=== PATIENT | male | born 1950 | race Caucasian/White ===

== ENCOUNTER → 2017-12-22 | Outpatient (CLI) | payer OTHER | LOC: BMCIMAGING 13:34 | PROVIDERS: ATTEND Family Medicine | DX: Z13.6 Encounter for screening for cardiovascular disorders (principal); I77.811 Abdominal aortic ectasia; I25.10 Atherosclerotic heart disease of native coronary artery without angina pectoris; E78.5 Hyperlipidemia, unspecified; Z95.2 Presence of prosthetic heart valve ==

== ENCOUNTER → 2018-02-24 | Outpatient (CLI) | payer OTHER ==
--- NOTE | 2018-03-01 11:46 | CPEEG ---
DATE OF STUDY: 02/24/2018 INTERPRETATION: Normal EEG during wakefulness and partial sleep. There were no potentially epilepto genic abnormalities present during the study. REPORT: This EEG contains 10 Hz alpha activity to the posterior head regions. There was no abnormal activation at rest, during photic stimulation or hyperventilation. The patient became drowsy and fe ll into light sleep briefly during the recording. There was no abnormal activation during drowsiness , brief sleep or during times of arousal. /[id number]/MODL
== END ==
LOC: FCPNEURO 09:38
PROVIDERS: ATTEND Psychiatry & Neurology Neurology
DX: G40.909 Epilepsy, unspecified, not intractable, without status epilepticus (principal)

== ENCOUNTER → 2018-03-04 | Outpatient (CLI) | payer OTHER ==
[~2018-03-04] MED LIST: GADOBUTROL 10 ML VIAL IVP ONE
== END ==
LOC: FIMAGING 09:11
PROVIDERS: ATTEND Psychiatry & Neurology Neurology
DX: G40.909 Epilepsy, unspecified, not intractable, without status epilepticus (principal)
CPT/HCPCS: 70553; A9585; 82565-PO

== ENCOUNTER → 2018-03-29 | Outpatient (CLI) | payer OTHER | LOC: BHFA 13:15 | PROVIDERS: ATTEND Internal Medicine Cardiovascular Disease | DX: R55 Syncope and collapse (principal); I25.10 Atherosclerotic heart disease of native coronary artery without angina pectoris; Z95.2 Presence of prosthetic heart valve | CPT/HCPCS: 78452; 93017; 93306; A9500 ==

== ENCOUNTER 2018-08-11 20:25 | Emergency (ER) | payer OTHER ==
--- NOTE | 2018-08-11 21:34 | EDPHY ---
H & P Time Seen by Provider: 08/11/18 21:33 HPI/ROS: Chief complaint. Seizure HPI. Patient is 68-year-old male with history of previous seizure and on Keppra presents with seizure that occurred tonight. His partner says he was sitting on the couch after dinner. He noted that he had some preceding aura and then his eyes rolled back in and had a short generalized tonic-clonic type seizure. He has had 1 previous seizure in January 2018. Apparently EEG and MRI were normal. He then also saw [facility] that as possible etiology but had normal workup. He says he is not sick. He complains compliance with medication. No recent head injury. He is not on blood thinners. He is now back to normal. He did bite his in her left lower lip ROS 10 systems were reviewed and negative with the exception of the elements mentioned in the history of present illness Past Medical/Surgical History: Seizure disorder, dyslipidemia, BPH, herpes Social History: , nonsmoker, no alcohol Smoking Status: Former smoker Physical Exam: General Appearance: Alert well-developed male mild distress vital signs are stable Eyes: Pupils equal and round no pallor or injection. ENT, no hemotympanum or Hollis sign. No oral pharyngeal or dental trauma. He did bite the inner left lower lip. Respiratory: There are no retractions, lungs are clear to auscultation. Cardiovascular: Regular rate and rhythm. Gastrointestinal: Abdomen is soft and nontender, no masses, bowel sounds normal. Neurological: Awake and alert, sensory and motor exams grossly normal. Skin: Warm and dry, no rashes. Musculoskeletal: Neck is supple nontender. Extremities symmetrical, full range of motion. Psychiatric: Patient is oriented X 3, there is no agitation. Constitutional: Initial Vital Signs Temperature (C) 36.4 C 08/11/18 20:37 Heart Rate 73 08/11/18 20:37 Respiratory Rate 16 08/11/18 20:37 Blood Pressure 119/93 H 08/11/18 20:37 O2 Sat (%) 96 08/11/18 20:37 O2 Delivery Mode Room Air Allergies/Adverse Reactions: Penicillins Allergy (Intermediate, Verified 08/11/18 20:41) STOMACH ACHE Home Medications: Medication Instructions Recorded Aspirin [Aspirin 81mg (OTC)] 81 mg PO DAILY 11/18/11 Vitamin B Complex [Vitamin B 1 each PO DAILY 11/18/11 Complex (OTC)] Tamsulosin HCl [Flomax 0.4 MG (*)] 0.4 mg PO DAILY 02/04/18 levETIRAcetam [Keppra 500 mg (*)] 500 mg PO BID 02/04/18 Atorvastatin Calcium 08/11/18 Medical Decision Making Procedures: IV normal saline. Seizure precautions. Keppra orally Old records and MRI are reviewed ED Course/Re-evaluation: Serial evaluations patient is stable. Conversational. No further seizure activity. He is given a 2nd at 500 mg Keppra in the emergency department to make sure his level is therapeutic. He had had his last dose this morning and had not received his evening dose. I was concerned that the level may be low so he is given a total of a 1000 mg orally in the ED Patient and I discussed laboratory evaluation, treatment plan including criteria for return importance of follow-up and further evaluation. He expresses understanding and agreement Differential Diagnosis: Seizure in a man with previous seizure and normal workup including MRI and EEG. Last seizure was in January. I considered electrolyte abnormalities and hypoglycemia - Data Points Laboratory Results: Laboratory Results 08/11/18 22:50 08/11/18 23:15 08/11/18 08/11/18 23:15 22:50 WBC 9.62 10^3/uL H 10^3/uL (3.80-9.50) RBC 4.47 10^6/uL 10^6/uL (4.40-6.38) Hgb 13.7 g/dL g/dL (13.7-17.5) Hct 39.8 % L % (40.0-51.0) MCV 89.0 fL fL (81.5-99.8) MCH 30.6 pg pg (27.9-34.1) MCHC 34.4 g/dL g/dL (32.4-36.7) RDW 13.1 % % (11.5-15.2) Plt Count 156 10^3/uL 10^3/uL (150-400) MPV 11.2 fL fL (8.7-11.7) Neut % (Auto) 80.0 % H % (39.3-74.2) Lymph % (Auto) 12.1 % L % (15.0-45.0) Slope % (Auto) 7.0 % % (4.5-13.0) Eos % (Auto) 0.4 % L % (0.6-7.6) Baso % (Auto) 0.3 % % (0.3-1.7) Nucleat RBC Rel Count 0.0 % % (0.0-0.2) Absolute Neuts (auto) 7.70 10^3/uL H 10^3/uL (1.70-6.50) Absolute Lymphs (auto) 1.16 10^3/uL 10^3/uL (1.00-3.00) Absolute Monos (auto) 0.67 10^3/uL 10^3/uL (0.30-0.80) Absolute Eos (auto) 0.04 10^3/uL 10^3/uL (0.03-0.40) Absolute Basos (auto) 0.03 10^3/uL 10^3/uL (0.02-0.10) Absolute Nucleated RBC 0.00 10^3/uL 10^3/uL (0-0.01) Immature Gran % 0.2 % % (0.0-1.1) Immature Gran # 0.02 10^3/uL 10^3/uL (0.00-0.10) Sodium 139 mEq/L mEq/L (135-145) Potassium 3.8 mEq/L mEq/L (3.5-5.2) Chloride 109 mEq/L mEq/L (97-110) Carbon Dioxide 24 mEq/l mEq/l (22-31) Anion Gap 6 mEq/L mEq/L (6-14) BUN 12 mg/dL mg/dL (7-23) Creatinine 0.7 mg/dL mg/dL (0.7-1.3) Estimated GFR > 60 Glucose 109 mg/dL H mg/dL (70-100) Calcium 8.4 mg/dL L mg/dL (8.5-10.4) Medications Given: Discontinued Medications Sodium Chloride (Ns) 1,000 mls @ 0 mls/hr IV EDNOW ONE; Wide Open PRN Reason: Protocol Stop: 08/11/18 22:38 Last Admin: 08/11/18 22:30 Dose: 1,000 mls Levetiracetam (Keppra) 500 mg PO EDNOW ONE Stop: 08/11/18 22:01 Last Admin: 08/11/18 22:24 Dose: 500 mg Departure - Departure Disposition: Home, Routine, Self-Care Clinical Impression: Seizure disorder, Seizure Condition: Good Instructions: Recurrent Seizures in Adults (ED) Additional Instructions: Continue Keppra 1 pill twice daily beginning in the morning. Call Dr. Wright tomorrow to arrange follow-up appointment for re-evaluation and possible medication adjustment Referrals: Tevin Wyman DO [Primary Care Provider] - As per Instructions Bautista De La Torre DO [Medical Doctor] - 1-2 days without fail
[2018-08-11] MEDS ORDERED: levETIRAcetam 500 MG TAB PO ONE ×2 (22:00→22:43)
[2018-08-11] MEDS ORDERED: NS 1,000 ML IV ONE (22:37)
[2018-08-11 22:55] LABS: PLATELET COUNT 156 10^3/uL (150-400)
[2018-08-12 00:01] VITALS: BP 130/70
== END 2018-08-12 | disposition home or self-care (01) ==
DX: G40.909 Epilepsy, unspecified, not intractable, without status epilepticus (principal); E86.9 Volume depletion, unspecified; Z79.899 Other long term (current) drug therapy